=== PATIENT | female | born 1955 | race Caucasian/White ===

== ENCOUNTER 2020-08-04 09:25 | Observation (INO) ==
[2020-08-04 10:04] LABS: Basophils % 0.5 %; Eosinophils # 0.2 K/mcL (0.0-0.6); Eosinophils % 4.2 %; Hematocrit 33.8 % (35.3-44.9); Hemoglobin 11.1 g/dL (11.5-15.4); Immature Granulocytes % 0.7 % (0-4); Lymphocytes # 1.2 K/mcL (0.6-4.6); Lymphocytes % 28.6 %; Mean Corpuscular HGB Conc 32.8 g/dL (31.6-35.5); Mean Corpuscular Hemoglobin 29.4 pg (28.0-33.3); Mean Corpuscular Volume 89.7 fL (83.0-100.0); Mean Platelet Volume 11.1 fL (9.4-12.4); Monocytes # 0.1 K/mcL (0.0-1.3); Monocytes % 3.4 %; Neutrophils # 2.5 K/mcL (1.6-8.9); Platelet Count 134 K/mcL (140-400); Red Blood Count 3.77 M/mcL (3.82-4.97); Red Cell Distribution Width 12.1 % (11.5-14.5); Segmented Neutrophils % 62.6 %; White Blood Count 4.1 K/mcL (4.3-11.1)
[2020-08-04 10:38] LABS: Alanine Aminotransferase 11 Units/L (7-52); Albumin 4.1 g/dL (3.5-5.7); Albumin/Globulin Ratio 1.7 (1.1-2.2); Alkaline Phosphatase 39 Units/L (34-104); Aspartate Amino Transferase 17 Units/L (13-39); BUN/Creatinine Ratio 10 (6-26); Bilirubin,Total 0.4 mg/dL (0.3-1.0); Blood Urea Nitrogen 37 mg/dL (8-23); Calcium 8.6 mg/dL (8.6-10.3); Carbon Dioxide 20 mEq/L (23-29); Chloride 111 mEq/L (98-107); Globulin 2.4 g/dL (2.4-3.5); Glucose 87 mg/dL (70-105); Lipase 67 Units/L (11-82); Osmolality,Calculated 296 (280-300); Potassium 4.5 mEq/L (3.5-5.1); Sodium 139 mEq/L (136-145); Total Protein 6.5 g/dL (6.4-8.9); Troponin I < 0.03 ng/mL (< 0.04); eGFR For African Americans 16 (> 60); eGFR For Non-African Americans 13 (> 60)
[2020-08-04 13:37] LABS: Bilirubin,Urine Negative (Negative); Blood,Urine Negative (Negative); Clarity,Urine Clear (Clear); Color,Urine Colorless (Yellow); Glucose,Urine (UA) Normal (Normal); Ketones,Urine Negative (Negative); Leukocyte Esterase,Urine Moderate (Negative); Mucus,Urine Few per lpf (None-Few); Nitrite,Urine Negative (Negative); PH,Urine 6.5 pH Units (5.0-8.0); Protein,Urine 100 mg/dL (Neg-Trace); RBC,Urine 0-3 per hpf (0-3); Specific Gravity,Urine 1.007 (1.010-1.025); Squamous Epithelial Cell,Urine Few per hpf (None-Few); Transitional Epi Cells,Urine Few per hpf (None-Few); Urobilinogen,Urine Normal (Normal)
[2020-08-04] MEDS ORDERED: Ondansetron 4 MG/2 ML VIAL IVP PRN (14:26)
[2020-08-04] MEDS ORDERED: *HR* HYDROcodone/Acet 5/325 mg TABLET PO PRN (14:26)
[2020-08-04] MEDS ORDERED: Naloxone 0.4 MG/ML INJ IVP PRN (14:26)
[2020-08-04] MEDS ORDERED: Perflutren Lipid Microsphere 1.3 ML in 0.9 % Sodium Chloride 8.7 ML IVP PRN (14:28)
[2020-08-04] MEDS ORDERED: Nitroglycerin 0.4 MG TAB.SUBL SL PRN (14:29)
[2020-08-04 14:59] LABS: Adenovirus Not Detected (Not Detect); Bordetella Pertussis Not Detected (Not Detect); Chlamydophila pneumoniae Not Detected (Not Detect); Coronavirus 229E Not Detected (Not Detect); Coronavirus HKU1 Not Detected (Not Detect); Coronavirus NL63 Not Detected (Not Detect); Coronavirus OC43 Not Detected (Not Detect); Human Metapneumovirus Not Detected (Not Detect); Human Rhinovirus/Enterovirus Not Detected (Not Detect); Influenza A Subtype 2009 H1 Not Detected (Not Detect); Influenza B Not Detected (Not Detect); Mycoplasma pneumoniae Not Detected (Not Detect); Parainfluenza Virus 1 Not Detected (Not Detect); Parainfluenza Virus 2 Not Detected (Not Detect); Parainfluenza Virus 3 Not Detected (Not Detect); Parainfluenza Virus 4 Not Detected (Not Detect); Respiratory Syncytial Virus Not Detected (Not Detect)
[2020-08-04 15:09] LABS: SARS-CoV-2 DETECTED (Not Detect)
[2020-08-04] MEDS ORDERED: Dexamethasone 4 MG/ML VIAL IVP STA (15:18)
[2020-08-04 16:24] LABS: Fibrinogen 297 mg/dL (169-393)
[2020-08-04 16:27] LABS: D-Dimer 552 ng/mLFEU (0-500)
[2020-08-04 16:51] LABS: C-Reactive Protein < 5 mg/L (Less than 10); Lactate Dehydrogenase 126 Units/L (140-271); Troponin I < 0.03 ng/mL (< 0.04)
[2020-08-04] MEDS: Metoprolol XL (24 HR) Succ 25 MG TAB.ER.24H PO SCH (17:58)
[2020-08-04] MEDS: Aspirin Enteric Coated 81 MG Tablet PO SCH (17:58)
[2020-08-04] MEDS: cefTRIAXone 1,000 MG in Water for inj. (sterile) 10 ML IVP SCH (17:59)
[2020-08-04] MEDS: *HR* Heparin 5,000 UNIT/ML VIAL SQ SCH (17:59)
[2020-08-05] MEDS: *HR* Heparin 5,000 UNIT/ML VIAL SQ SCH ×2 (05:31→17:08)
[2020-08-05 06:03] LABS: Basophils % 0.8 %; Eosinophils # 0.2 K/mcL (0.0-0.6); Eosinophils % 4.5 %; Hematocrit 32.5 % (35.3-44.9); Hemoglobin 10.5 g/dL (11.5-15.4); Immature Granulocytes % 0.5 % (0-4); Lymphocytes # 1.4 K/mcL (0.6-4.6); Lymphocytes % 37.8 %; Mean Corpuscular HGB Conc 32.3 g/dL (31.6-35.5); Mean Corpuscular Volume 92.9 fL (83.0-100.0); Mean Platelet Volume 10.8 fL (9.4-12.4); Monocytes # 0.2 K/mcL (0.0-1.3); Monocytes % 5.3 %; Neutrophils # 1.9 K/mcL (1.6-8.9); Platelet Count 138 K/mcL (140-400); Red Cell Distribution Width 12.3 % (11.5-14.5); Segmented Neutrophils % 51.1 %; White Blood Count 3.8 K/mcL (4.3-11.1)
[2020-08-05 06:13] LABS: Calcium 8.6 mg/dL (8.6-10.3); Magnesium 1.7 mg/dL (1.6-2.6); Phosphorous 4.6 mg/dL (2.7-4.5); Potassium 4.3 mEq/L (3.5-5.1)
[2020-08-05] MEDS: Aspirin Enteric Coated 81 MG Tablet PO SCH (08:35)
[2020-08-05] MEDS: Metoprolol XL (24 HR) Succ 25 MG TAB.ER.24H PO SCH ×2 (08:35→08:48)
[2020-08-05] MEDS: cefTRIAXone 1,000 MG in Water for inj. (sterile) 10 ML IVP SCH (08:35)
[2020-08-05] MEDS: amLODIPine 5 MG TABLET PO SCH (08:35)
[2020-08-05] MEDS: Ipratropium 1 PUFF INHALER IH SCH ×4 (11:55→23:20)
[2020-08-05] MEDS ORDERED: Ringers Solution, Lactated 1,000 ML IVC ONE (12:55)
[2020-08-06] MEDS: Ipratropium 1 PUFF INHALER IH SCH ×6 (03:33→23:05)
[2020-08-06 04:11] LABS: Hematocrit 28.3 % (35.3-44.9); Hemoglobin 9.3 g/dL (11.5-15.4); Mean Corpuscular HGB Conc 32.9 g/dL (31.6-35.5); Mean Corpuscular Hemoglobin 30.5 pg (28.0-33.3); Mean Corpuscular Volume 92.8 fL (83.0-100.0); Mean Platelet Volume 11.1 fL (9.4-12.4); Platelet Count 117 K/mcL (140-400); Red Blood Count 3.05 M/mcL (3.82-4.97); Red Cell Distribution Width 12.2 % (11.5-14.5); White Blood Count 3.6 K/mcL (4.3-11.1)
[2020-08-06 04:35] LABS: Calcium 8.3 mg/dL (8.6-10.3); Potassium 4.1 mEq/L (3.5-5.1)
[2020-08-06] MEDS: *HR* Heparin 5,000 UNIT/ML VIAL SQ SCH ×2 (05:23→18:10)
[2020-08-06] MEDS: Ringers Solution, Lactated 1,000 ML IVC SCH ×2 (10:15→18:11)
[2020-08-06] MEDS: Aspirin Enteric Coated 81 MG Tablet PO SCH (10:15)
[2020-08-06] MEDS: Metoprolol XL (24 HR) Succ 25 MG TAB.ER.24H PO SCH (10:16)
[2020-08-06] MEDS: amLODIPine 5 MG TABLET PO SCH (10:16)
[2020-08-06] MEDS: Propranolol LA (24 HR) 60 MG CAP.SA.24H PO SCH (18:11)
[2020-08-06] MEDS ORDERED: Sodium Bicarbonate 75 MEQ in 0.45 % Sodium Chloride 1,000 ML IVC SCH ×2 (21:45→22:00)
[2020-08-06] MEDS: Sodium Bicarbonate 75 MEQ in 0.45 % Sodium Chloride 1,000 ML IVC SCH (23:12)
[2020-08-07] MEDS: Ipratropium 1 PUFF INHALER IH SCH ×3 (03:31→11:16)
[2020-08-07] MEDS: *HR* Heparin 5,000 UNIT/ML VIAL SQ SCH (06:07)
[2020-08-07 07:05] LABS: Calcium 8.4 mg/dL (8.6-10.3); Potassium 4.3 mEq/L (3.5-5.1)
[2020-08-07] MEDS: amLODIPine 5 MG TABLET PO SCH (07:55)
[2020-08-07] MEDS: Aspirin Enteric Coated 81 MG Tablet PO SCH (07:55)
[2020-08-07] MEDS: Propranolol LA (24 HR) 60 MG CAP.SA.24H PO SCH (07:55)
[2020-08-07] MEDS: Sodium Bicarbonate 75 MEQ in 0.45 % Sodium Chloride 1,000 ML IVC SCH (07:56)
[2020-08-07 10:05] VITALS: BP 136/71
== END 2020-08-07 15:32 | disposition home or self-care (01) ==
LOC: 2NENU 09:25 → EMEROOARM 09:25 → 2NENU 17:06
PROVIDERS: ADMIT Internal Medicine; ATTEND Internal Medicine